=== PATIENT | male | born 1955 | race Caucasian/White ===

== ENCOUNTER → 2024-08-31 14:25 | Outpatient (CLI) | payer MEDICARE, SELFPAY ==
--- NOTE | 2024-08-31 14:27 | DI.RAD.S_ITS ---
PROCEDURE: XR CHEST 2V INDICATIONS: Cough, SOB TECHNIQUE: 2 views of the chest were acquired. COMPARISON: None. FINDINGS: Surgical changes and devices: None. Lungs and pleura: Prominent interstitial markings and small bilateral pleural effusions Mediastinum: Mediastinal contours are normal. Heart size is normal. Bones and chest wall: No suspicious bony abnormalities. Soft tissues appear unremarkable. IMPRESSION: Small bilateral effusions with prominent tissue markings, likely representing pulmonary edema. Dictated by: George Brody M.D. on 08/31/2024 at 15:04 Approved by: George Brody M.D. on 08/31/2024 at 15:09
== END ==
PROVIDERS: Referring Provider Physician Assistant Surgical; Visit Provider Physician Assistant Surgical
DX: J90 Pleural effusion, not elsewhere classified (principal); R05.9 Cough, unspecified
CPT/HCPCS: 71046

== ENCOUNTER → 2024-09-09 16:37 | Outpatient (CLI) | payer MEDICARE, SELFPAY ==
[2024-09-09 17:29] LABS: Add Manual Diff / Slide Review NO; Basophils Absolute Auto 100 /uL (0-100); Basophils Percent Auto 1.1 % (0-2); Eosinophils Absolute Auto 100 /uL (0-450); Eosinophils Percent Auto 1.9 % (2-4); Hematocrit 44.7 % (41-53); Hemoglobin 14.9 g/dL (13.5-17.5); Lymphocytes Absolute Auto 1600 /uL (1100-4500); Lymphocytes Percent Auto 21.1 % (25-40); Mean Corpuscular HGB Conc 33.3 % (30-36); Mean Corpuscular Hemoglobin 32.4 PG (26-34); Mean Corpuscular Volume 97.2 fL (80-100); Monocytes Absolute Auto 800 /uL (0-900); Monocytes Percent Auto 9.9 % (3-14); Neutrophils Absolute Auto 5100 /uL (1500-7000); Platelet Count 248 X10^3/uL (150-400); Red Blood Cell Count 4.59 X10^6/uL (4.5-5.9); Red Cell Distribution Width 13.9 % (11.6-14.8); White Blood Cell Count 7.7 X10^3/uL (4.5-11.0)
[2024-09-09 18:20] LABS: Alanine Aminotransferase 39 IU/L (<50); Albumin Globulin Ratio 1.3 (1.0-2.8); Alkaline Phosphatase 74 U/L (38-126); Aspartate Aminotransferase 42 IU/L (17-59); BUN Creatinine Ratio 15.8 (6-22); Bilirubin Total 0.8 mg/dL (0.2-1.3); Blood Urea Nitrogen 16 mg/dL (9-20); Calcium 8.8 mg/dL (8.4-10.2); Carbon Dioxide 29 mmol/L (22-32); Chloride 103 mmol/L (98-107); Cholesterol 170 mg/dL (140-199); Estimated Glomerular Filt Rate > 60 mL/min (>60); Glucose 102 mg/dL (80-110); HDL Cholesterol 46 mg/dL (40-60); HEMOLYSIS < 15 (0-50); LDL Cholesterol Calculated 114 mg/dL (<100); Potassium 3.9 mmol/L (3.4-5.1); Sodium 137 mmol/L (137-145); Triglycerides 50 mg/dL (35-150)
[2024-09-09 18:52] LABS: TSH w/ Reflex to FT4 1.94 uIU/mL (0.47-4.68)
== END ==
LOC: LAB 16:39
PROVIDERS: PCP Family Medicine; Referring Provider Family Medicine; Visit Provider Family Medicine
DX: I10 Essential (primary) hypertension (principal); J90 Pleural effusion, not elsewhere classified
CPT/HCPCS: 36415; 80053; 80061; 84443; 85025

== ENCOUNTER → 2024-09-15 09:23 | Outpatient (CLI) | payer MEDICARE, SELFPAY ==
--- NOTE | 2024-09-15 09:25 | DI.RAD.S_ITS ---
PROCEDURE: XR CHEST 2V INDICATIONS: unresolved shortness of breath TECHNIQUE: 2 views of the chest were acquired. COMPARISON: [facility], CR, XR CHEST 2V, 08/31/2024, 14:41. FINDINGS: Surgical changes and devices: None. Lungs and pleura: Moderate bilateral pleural effusions are unchanged. Mild airspace disease both inferior lower lobes is likely atelectasis. Mediastinum: Heart is mildly enlarged. Mediastinum unremarkable . Pulmonary vessels are mildly distended Bones and chest wall: No osseous abnormality IMPRESSION: Moderate CHF. Dictated by: Alan Leonard M.D. on 09/16/2024 at 17:16 Approved by: Alan Leonard M.D. on 09/16/2024 at 17:17
== END ==
PROVIDERS: PCP Family Medicine; Referring Provider Family Medicine; Visit Provider Family Medicine
DX: J18.9 Pneumonia, unspecified organism (principal); J90 Pleural effusion, not elsewhere classified; I50.9 Heart failure, unspecified; R06.02 Shortness of breath; I51.7 Cardiomegaly
CPT/HCPCS: 71046

== ENCOUNTER → 2024-10-04 09:04 | Outpatient (CLI) | payer MEDICARE, SELFPAY ==
--- NOTE | 2024-10-04 09:06 | DI.ECHO.S_ITS ---
[facility] : : [id number] : [place] : : [id number] : : Phone: [phone] Echocardiogram Report + + :Name: JESUSITA HONG Study Date: 10/04/2024 Height: 72 in : :Hospital ReadingLocation: Weight: 249 lb : : Gender: Male BSA: 2.3 m2 : :: 1955 Age: 69 yrs BP: 183/98 mmHg: :Reason For Study: PLEURAL EFFUSION, HYPERTENSION : :Ordering Physician: THANH, : :GAVINO Reyes Performed By: Bala Bojorquez : :Referring: GAVINO LAW : + + Interpretation Summary The study quality was technically difficult. The ejection fraction is estimated to be 55-60%. Diastolic parameters suggest probable normal left ventricular diastolic function and normal filling pressures. The right ventricular systolic function is normal. Pulmonary artery pressures cannot be estimated because of the lack of a measurable TR jet velocity but the IVC suggests a CVP of around 3 mmHg. No significant valvular abnormality. There is a moderate left-sided pleural effusion. Procedure: A two-dimensional transthoracic echocardiogram with color flow and Doppler was performed. There is no prior echocardiogram noted for this patient. The study quality was technically difficult. The patient was in normal sinus rhythm during the exam. Left Ventricle: The left ventricle is normal in size. Left ventricular wall thickness is mildly increased. There is no ventricular septal defect visualized. The ejection fraction is estimated to be 55-60%. There are no obvious focal wall motion abnormalities noted but poor endocardial definition reduces the sensitivity for the detection of such. Regional wall motion abnormalities cannot be excluded due to limited visualization. Diastolic parameters suggest probable normal left ventricular diastolic function and normal filling pressures. Right Ventricle: The right ventricle is mildly dilated. The right ventricular systolic function is normal. Atria: The left atrium grossly appears normal in size. Right atrial size is normal. The interatrial septum grossly appears intact with no obvious evidence for an atrial septal defect. Mitral Valve: The mitral valve leaflets are mildly calcified. There is trace mitral regurgitation. Aortic Valve: The aortic valve is trileaflet. The aortic valve is mildly calcified. The aortic valve opens well. There is no aortic valve stenosis. There is mild aortic regurgitation. Tricuspid Valve: The tricuspid valve leaflets are thin and pliable. No tricuspid regurgitation. Pulmonary artery pressures cannot be estimated because of the lack of a measurable TR jet velocity but the IVC suggests a CVP of around 3 mmHg. Pulmonic Valve: The pulmonic valve is not well seen, but is grossly normal. There is no pulmonic valvular regurgitation. Great Vessels: The aortic root is normal size. The ascending aorta is mildly enlarged. The pulmonary artery is normal size. The IVC is of normal diameter and collapses greater than 50% with a sniff. This suggests a low right atrial pressure of 3 mm Hg. Pericardium/ Pleura There is a trivial pericardial effusion noted. There is a moderate left-sided pleural effusion. MMode/2D Measurements & Calculations LVIDd: 5.0 cm LVOT diam: 2.4 cm LVIDs: 3.5 cm Ao root diam: 3.6 cm FS: 29.6 % asc Aorta Diam: 3.8 cm EPSS: 0.98 cm Ao Arch Diam (Prox Trans): 2.4 cm IVSd: 1.5 cm LVPWd: 1.1 cm LV ellington. diameter/BSA (cm/m^2): 2.1 LV sys. diameter/BSA (cm/m^2): 1.5 LA A2 area: 21.7 cm2 RA long axis: 4.6 cm LA A4 area: 25.7 cm2 RA area: 14.2 cm2 LA length (vol): 6.3 cm RA vol: 37.2 ml LA vol: 74.9 ml RA : 15.9 ml/m2 LA vol index: 32.0 ml/m2 IVC diam: 1.6 cm RVD1 (basal): 4.4 cm TAPSE: 2.7 cm Doppler Measurements & Calculations Ao V2 max: 151.2 cm/sec LVOT Max Stalin: 91.9 cm/sec Ao V2 mean: 102.0 cm/sec LV V1 max P.4 mmHg Ao max P.1 mmHg LV V1 VTI: 17.1 cm Ao mean P.8 mmHg LEANNE(I,D): 3.1 cm2 Ao V2 VTI: 24.8 cm LEANNE(V,D): 2.7 cm2 sev ratio: 0.69 LEANNE indexed to BSA (cm^2/m^2): 1.3 MV E max stalin: 75.3 cm/sec PA V2 max: 75.5 cm/sec MV A max stalin: 50.7 cm/sec PA V2 mean: 57.4 cm/sec MV E/A: 1.5 PA mean P.4 mmHg Med Peak E' Stalin: 6.3 cm/sec PA pr(Accel): 53.3 mmHg E/E' med: 12.0 Lat Peak E' Stalin: 6.3 cm/sec E/E' lat: 11.9 E/e' average: 11.9 MV dec time: 0.11 sec [facility] 76.2 ml Reading Physician:05:19 PM
== END ==
PROVIDERS: PCP Family Medicine; Referring Provider Family Medicine; Visit Provider Family Medicine
DX: I35.1 Nonrheumatic aortic (valve) insufficiency (principal); J90 Pleural effusion, not elsewhere classified; I10 Essential (primary) hypertension; I77.89 Other specified disorders of arteries and arterioles
CPT/HCPCS: 93306

== ENCOUNTER → 2024-10-18 11:25 | Outpatient (CLI) | payer MEDICARE, SELFPAY ==
[2024-10-18 12:30] LABS: BUN Creatinine Ratio 15.3 (6-22); Blood Urea Nitrogen 15 mg/dL (9-20); Calcium 8.8 mg/dL (8.4-10.2); Carbon Dioxide 29 mmol/L (22-32); Chloride 98 mmol/L (98-107); Estimated Glomerular Filt Rate > 60 mL/min (>60); Glucose 116 mg/dL (80-110); HEMOLYSIS < 15 (0-50); Sodium 138 mmol/L (137-145)
== END ==
PROVIDERS: PCP Family Medicine; Referring Provider Family Medicine; Visit Provider Family Medicine
DX: I50.9 Heart failure, unspecified (principal)
CPT/HCPCS: 36415; 80048

== ENCOUNTER → 2024-10-25 07:37 | Outpatient (CLI) | payer MEDICARE, SELFPAY ==
--- NOTE | 2024-10-25 07:38 | DI.US.S_ITS ---
PROCEDURE: US ABDOMEN COMPLETE INDICATIONS: Abdominal ascites TECHNIQUE: Real-time scanning was performed of the abdominal and retroperitoneal organs, with image documentation. COMPARISON: None. FINDINGS: Incidental note is made of bilateral pleural effusions left greater than right. Approximately 2.1 x 1.4 x 1.3 centimeter hyperechoic round nodular density in the left lobe of the liver commonly may represent hemangioma however other hepatic lesions not excluded and follow-up suggested. Gallbladder is nondistended. No ultrasound evidence of gallbladder wall thickening or pericholecystic fluid. Common bile duct measures 4 millimeters within normal limits. Pancreatic head and body within normal limits. Pancreatic tail not well visualized due to overlying bowel gas per notes. Spleen measures 9.1 centimeters in length within normal limits. Kidneys: Kidneys are normal in size and echotexture. Right kidney measures 11.7 cm long; left kidney measures 13.3 cm long. No hydronephrosis or nephrolithiasis. No solid masses. Aorta: Visualized aorta is normal in caliber at less than 3 cm. Iliacs: Proximal common iliac arteries are normal in caliber at less than 2.5 cm. IVC: Intrahepatic inferior vena cava is patent. Miscellaneous: No free abdominal fluid. IMPRESSION: Bilateral pleural effusions. 2.1 centimeter hyperechoic nodule left lobe of the liver as discussed above. Follow-up suggested. No ultrasound evidence of ascites. If symptoms persist or worsen, or there is high clinical suspicion of abdominal abnormality, CT or MRI could be performed. Dictated by: Phong Crawford M.D. on 10/25/2024 at 9:09 Approved by: Phong Crawford M.D. on 10/29/2024 at 21:57
--- NOTE | 2024-10-25 07:38 | DI.CT.S_ITS ---
PROCEDURE: CT CHEST W CON INDICATIONS: Pleural effusion TECHNIQUE: After the administration of intravenous contrast, 5 mm thick sections acquired from the pulmonary apices to the posterior costophrenic angles. 1 mm axial lung, 5 mm thick coronal and sagittal reformats and 7 mm axial MIP were acquired. For radiation dose reduction, the following was used: automated exposure control, adjustment of mA and/or kV according to patient size. COMPARISON: [facility], CR, XR CHEST 2V, 09/15/2024, 9:35. FINDINGS: Image quality: Diagnostic. Lower Neck: No enlarged lymph nodes. Thyroid: No thyroid nodules which require sonographic follow up, per consensus guidelines. Axillae: No enlarged lymph nodes. Chest Wall: Mild left greater than right gynecomastia. Bones: No acute vertebral body compression fractures. Multilevel spondylitic changes throughout the imaged spine. No suspicious osseous lesions. Lungs and Pleura: Small-moderate left and small right bilateral pleural effusions with associated compressive atelectasis. Streaky densities of the left lower lobe likely representing atelectasis. Mild bilateral airway thickening. Mild smooth septal thickening of the bilateral upper lobes. Minimal septal thickening of the lower lobes. No suspicious pulmonary nodules or mass lesions. No pneumothorax. Heart: Heart size is normal. No pericardial effusion. Coronary atherosclerotic vascular calcifications are noted. Thoracic Vessels: The pulmonary arteries demonstrate normal size. Borderline ectasia of the ascending thoracic aorta measuring approximately 4.0 cm in diameter. Mediastinum and Kasey: Multiple scattered prominent mediastinal lymph nodes. Largest measures approximately 1.3 cm in short axis dimension in the precarinal region. Esophagus: No wall thickening. No hiatal hernia. Upper Abdomen: Visualized upper abdomen solid organs and bowel loops appear normal. IMPRESSION: Small right and small-moderate left bilateral pleural effusions with associated compressive atelectasis, bilateral airway thickening, and mild smooth septal thickening. Findings are nonspecific but may be related to pulmonary edema/CHF. No focal consolidation identified. Borderline ectasia of the ascending thoracic aorta measuring up to 4.0 cm in diameter. Atherosclerotic calcification of the coronary arteries. Multiple prominent mediastinal lymph nodes likely reactive in etiology. Other chronic/non-acute findings as above. Dictated by: Howard Jaquez M.D. on 10/25/2024 at 11:28 Approved by: Howard Jaquez M.D. on 10/25/2024 at 11:34
== END ==
PROVIDERS: PCP Family Medicine; Referring Provider Family Medicine; Visit Provider Family Medicine
DX: J90 Pleural effusion, not elsewhere classified (principal); J98.11 Atelectasis; R18.8 Other ascites; I25.10 Atherosclerotic heart disease of native coronary artery without angina pectoris
CPT/HCPCS: 71260; 76700; Q9967

== ENCOUNTER → 2024-11-15 13:35 | Outpatient (CLI) | payer MEDICARE, SELFPAY ==
[2024-11-15 14:45] LABS: BUN Creatinine Ratio 14.2 (6-22); Blood Urea Nitrogen 15 mg/dL (9-20); Calcium 9.3 mg/dL (8.4-10.2); Carbon Dioxide 30 mmol/L (22-32); Chloride 100 mmol/L (98-107); Estimated Glomerular Filt Rate > 60 mL/min (>60); Glucose 94 mg/dL (80-110); HEMOLYSIS < 15 (0-50); Sodium 140 mmol/L (137-145)
== END ==
PROVIDERS: PCP Family Medicine; Referring Provider Family Medicine; Visit Provider Family Medicine
DX: I10 Essential (primary) hypertension (principal)
CPT/HCPCS: 36415; 80048

== ENCOUNTER → 2024-11-22 08:47 | Outpatient (CLI) | payer MEDICARE, SELFPAY ==
--- NOTE | 2024-11-22 08:48 | DI.CT.S_ITS ---
PROCEDURE: CT CHEST W CON INDICATIONS: F/U CT chest for enlarged lymph nodes TECHNIQUE: After the administration of intravenous contrast, 5 mm thick sections acquired from the pulmonary apices to the posterior costophrenic angles. 1 mm axial lung, 5 mm thick coronal and sagittal reformats and 7 mm axial MIP were acquired. For radiation dose reduction, the following was used: automated exposure control, adjustment of mA and/or kV according to patient size. COMPARISON: [facility], CT, CT CHEST W CON, 10/25/2024, 8:42. FINDINGS: Image quality: Diagnostic. Some images are limited by beam hardening artifacts. Moderate left and mild right pleural effusions relatively unchanged. Mild bilateral perihilar and lower lobe peribronchial thickening, some of which may be related expiratory result; however, bronchitis, viral infection, bronchopneumonia or other process should be considered similar to the prior exam. Compressive atelectatic changes are noted in the left lower lobe greater than right lower lobe basal segments. Mild cardiomegaly with four-chamber enlargement predominantly left atrial, left ventricular enlargement relatively unchanged. Mildly prominent pulmonary vessels pulmonary vascular congestion unchanged. Mild calcifications of the aortic valve coronary arteries unchanged. Numerous mildly enlarged mediastinal lymph nodes, prevascular, aortic or pulmonary, anterior tracheal, bilateral paratracheal, subcarinal and hilar loads the largest right low anterior paratracheal measuring up to 1.3 cm short axis unchanged. 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 Bilateral anterior chest wall subareolar soft tissue attenuation measuring up to 2 cm on the left and 1 cm on the right mild gynecomastia unchanged. No pneumothorax, no lobar consolidation. IMPRESSION: No significant change compared to the prior exam. Bilateral pleural effusions unchanged. Mildly enlarged mediastinal lymph nodes commonly reactive/inflammatory although given the size and number cannot exclude pathologically enlarged nodes and follow-up suggested. Mild peribronchial thickening unchanged. Mild cardiomegaly and mild pulmonary vascular congestion unchanged. Follow-up suggested Dictated by: Phong Crawford M.D. on 11/22/2024 at 12:40 Approved by: Phong Crawford M.D. on 11/22/2024 at 12:49
== END ==
LOC: CT 08:48
PROVIDERS: PCP Family Medicine; Referring Provider Family Medicine; Visit Provider Family Medicine
DX: J90 Pleural effusion, not elsewhere classified (principal); I71.40 Abdominal aortic aneurysm, without rupture, unspecified; I51.7 Cardiomegaly; R59.0 Localized enlarged lymph nodes; R09.89 Other specified symptoms and signs involving the circulatory and respiratory systems
CPT/HCPCS: 71260; Q9967

== ENCOUNTER → 2025-01-24 07:28 | Outpatient (CLI) | payer MEDICARE, SELFPAY ==
--- NOTE | 2025-01-24 07:29 | DI.US.S_ITS ---
PROCEDURE: US ABDOMEN LIMITED INDICATIONS: F/u liver lesion identified October 2024 TECHNIQUE: Real-time scanning was performed of the liver, with image documentation. COMPARISON: [facility], CT, CT CHEST W CON, 11/22/2024, 8:56. [facility], US, US ABDOMEN COMPLETE, 10/25/2024, 7:56. FINDINGS: Liver: Measures 13.2 cm in length. Diffuse increased in echogenicity. Left liver echogenic oval lesion measuring 2.3 x 1.3 x 1 cm, (previously 2.1 x 1.4 x 1.3 cm). Not significantly changed. This may be subtly visualized on CT chest with contrast 10/25/2024. IMPRESSION: Left liver lesion measuring 2.3 cm. Not significantly changed. This could represent a hemangioma. This could be more definitively characterized with multiphase liver CT or liver MRI. Increased hepatic echogenicity most consistent with hepatic steatosis. Other forms of hepatocellular disease could have similar appearance. Dictated by: Elan Carney M.D. on 01/24/2025 at 8:53 Approved by: Elan Carney M.D. on 01/24/2025 at 8:58
== END ==
LOC: US 07:28
PROVIDERS: PCP Family Medicine; Referring Provider Family Medicine; Visit Provider Family Medicine
DX: R18.8 Other ascites (principal); F10.10 Alcohol abuse, uncomplicated; K76.9 Liver disease, unspecified
CPT/HCPCS: 76705

== ENCOUNTER → 2025-01-27 13:43 | Outpatient (CLI) | payer MEDICARE, SELFPAY ==
--- NOTE | 2025-02-02 17:31 | DI.NM.S_ITS ---
DATE OF SERVICE: 01/27/2025 NUCLEAR CARDIOLOGY MYOCARDIAL PERFUSION STUDY PROCEDURE PERFORMED: Pharmacologic vasodilator stress and rest myocardial perfusion imaging with gating to assess ejection fraction and regional wall motion. ORDERING PROVIDER: Bonnie Ceja M.D. INDICATIONS: The patient is a 69-year-old male with rapidly progressive exertional dyspnea and pedal edema. PHARMACOLOGIC STRESS: Per protocol, 0.4 mg of regadenoson was infused, augmented by slow level walking on the treadmill. With this, he had a normal heart rate and blood pressure response and denied any chest discomfort. His resting ECG shows sinus rhythm with frequent PACs, at times in a trigeminal pattern, and mild baseline ST-segment abnormalities. With stress, there are no significant ST-segment shifts but the PACs resolve and there are no other arrhythmias. Per protocol, 25.6 millicuries of technetium-99m Myoview was injected and he was imaged 15 minutes later using a gated SPECT acquisition protocol. Six days earlier while at rest, he had been injected with 26.0 millicuries of technetium-99m Myoview and was imaged 15 minutes later, again using a gated SPECT acquisition protocol. FINDINGS: 1. Raw data. There is fair myocardial tracer uptake. The lung/heart ratio is normal at 0.35 with a normal TID ratio of 1.02. 2. Quantitated gated SPECT: Post-stress ejection fraction is estimated at 57% without any focal wall motion abnormality and specifically the inferior wall has normal contractility. The resting ejection fraction is 61% with a moderately increased resting end-diastolic volume of 203 mL. There is mild increased tracer uptake of the right ventricular free wall, which can be a sign of a right ventricular overload condition, but clinical correlation is recommended. 3. Myocardial perfusion imaging: Post-stress supine images show a [id number] perfusion defect in the proximal to mid inferior wall in a pattern consistent with diaphragmatic attenuation, although the defect persists on the prone images, yet the prone images are of fairly poor quality. The resting images show a similar perfusion pattern with an inferior perfusion defect, although with some improvement throughout the inferior wall compared to the stress images. IMPRESSION: 1. Probable abnormal myocardial perfusion study but with reduced specificity because of marginal image quality and likely low risk. 2. Predominantly fixed, but slightly reversible perfusion defect in the inferior wall. While this has a typical appearance for diaphragmatic attenuation artifact, this defect persists on the prone images, raising concern this reflects a true perfusion defect, yet the prone images are of fairly poor quality, reducing their reliability. While this could be reflect a previous nontransmural inferior infarction with slight kathy-infarct ischemia, the absence of any wall motion abnormality in this distribution reduces the specificity for this finding, and if present, there is only a small volume of myocardial ischemia. 3. Normal left ventricular function without focal abnormality but moderately increased left ventricular volumes. Mildly increased tracer uptake in the right ventricular free wall suggests the possibility of a right ventricular overload condition but clinical correlation is needed. 4. No angina or ECG evidence of ischemia with pharmacologic vasodilator stress but baseline ST-segment abnormalities. There were frequent PACs at rest, at times in a trigeminal pattern, that improved with stress and there was no complex ectopy. Leobardo Chinhcilla - NETO/valente/NICOLA doc#: [id number]/job#: [id number] dd: 02/02/2025 16:40:00 dt: 02/02/2025 17:09:00 DICTATING MD/COPIES TO: Maxime Osuna MD; Bonnie Ceja M.D. COPIES MNE: ETRI;
== END ==
LOC: NUCM 13:43
PROVIDERS: PCP Family Medicine; Referring Provider Internal Medicine Cardiovascular Disease; Visit Provider Internal Medicine Cardiovascular Disease
DX: I25.10 Atherosclerotic heart disease of native coronary artery without angina pectoris (principal); R06.02 Shortness of breath
CPT/HCPCS: 78452; 93017; A9502; J2785

== ENCOUNTER → 2025-05-23 09:02 | Outpatient (CLI) | payer MEDICARE, SELFPAY ==
--- NOTE | 2025-05-23 09:04 | DI.CT.S_ITS ---
PROCEDURE: CT ABDOMEN LIVER PROTOCOL INDICATIONS: multiphase liver CT TECHNIQUE: 4 phase scanning was performed. Non-contrast 5 mm axial sections acquired from the diaphragm to the iliac crests. Following the administration of intravenous contrast, 5 mm thick arterial-phase, portal venous-phase, and 5-minute delayed phase images were acquired through the liver. 5 mm thick coronal and sagittal reformats were performed. For radiation dose reduction, the following was used: automated exposure control, adjustment of mA and/or kV according to patient size. COMPARISON: [facility], US, US ABDOMEN LIMITED, 01/24/2025, 7:37. [facility], CT, CT CHEST W CON, 11/22/2024, 8:56. FINDINGS: Image quality: Excellent. Lower chest: Small bilateral pleural effusions. ABDOMEN: Liver: Small hepatic lesions. Subtle peripheral nodular discontinuous enhancement. -Liver measuring 1.5 cm, (11/24). Corresponds to the echogenic focus seen on prior ultrasound. -Right liver inferiorly measuring 1.5 cm, (). Liver surface appears smooth. Gallbladder: No radiopaque gallstones or wall thickening. Biliary ducts: No biliary dilation. Pancreas: No ductal dilation. Spleen: Size is within normal limits. Adrenal Glands: No adrenal nodules. Kidneys and Ureters: No hydronephrosis. No kidney stones. No solid mass. No complex renal cystic lesion which requires follow up. Stomach and Bowel: Normal colonic caliber, without significant wall thickening. Visualized portions of the appendix are normal. Peritoneum: No abnormal intraperitoneal fluid. No free air. Ventral Wall: No hernia. Abdominal Nodes: No retroperitoneal or mesenteric adenopathy by size criteria. Vessels: Aorta and inferior vena cava are normal in size. Portal vein is patent. PELVIS: Pelvic Organs: Unremarkable. Bladder: Unremarkable. Pelvic Nodes: No enlarged lymph nodes. Miscellaneous: No inguinal hernias are seen. Bones: No aggressive osseous abnormality. IMPRESSION: 1. Small benign hemangiomas in the liver x2. 2. Small bilateral pleural effusions. Dictated by: Elan Carney M.D. on 05/23/2025 at 13:06 Approved by: Elan Carney M.D. on 05/23/2025 at 13:14
[2025-05-23 09:27] LABS: Estimated Glomerular Filt Rate > 60 mL/min (>60)
== END ==
LOC: CT 09:04
PROVIDERS: PCP Family Medicine; Referring Provider Family Medicine; Visit Provider Family Medicine
DX: K76.89 Other specified diseases of liver (principal); D18.03 Hemangioma of intra-abdominal structures; J90 Pleural effusion, not elsewhere classified
CPT/HCPCS: 36415; 74170; 82565; Q9967

== ENCOUNTER → 2025-06-13 12:13 | Outpatient (CLI) | payer MEDICARE, SELFPAY ==
[2025-06-13 12:50] LABS: Add Manual Diff / Slide Review NO; Hematocrit 44.7 % (41-53); Hemoglobin 15.3 g/dL (13.5-17.5); Lymphocytes Absolute Auto 1500 /uL (1100-4500); Mean Corpuscular HGB Conc 34.3 % (30-36); Mean Corpuscular Hemoglobin 32.1 PG (26-34); Mean Corpuscular Volume 93.6 fL (80-100); Platelet Count 200 X10^3/uL (150-400)
[2025-06-13 12:55] LABS: INR 1.4 (0.9-1.3); Prothrombin Time 15.3 SECONDS (9.4-12.5)
[2025-06-13 13:09] LABS: Alanine Aminotransferase 31 IU/L (<50); Albumin 4.2 g/dL (3.5-5.0); Albumin Globulin Ratio 1.4 (1.0-2.8); Alkaline Phosphatase 81 U/L (38-126); Blood Urea Nitrogen 16 mg/dL (9-20); Calcium 8.9 mg/dL (8.4-10.2); Carbon Dioxide 28 mmol/L (22-32); Chloride 101 mmol/L (98-107); Estimated Glomerular Filt Rate > 60 mL/min (>60); Globulin 3.1 g/dL (1.7-4.1); Glucose 102 mg/dL (70-99); HEMOLYSIS < 15 (0-50); Potassium 4.0 mmol/L (3.4-5.1); Sodium 138 mmol/L (137-145); Total Protein 7.3 g/dL (6.3-8.2)
== END ==
PROVIDERS: PCP Family Medicine; Referring Provider Family Medicine; Visit Provider Family Medicine
DX: R04.2 Hemoptysis (principal)
CPT/HCPCS: 36415; 80053; 85025; 85610

== ENCOUNTER → 2025-06-14 13:09 | Outpatient (CLI) | payer MEDICARE, SELFPAY ==
--- NOTE | 2025-06-14 13:30 | DI.CT.S_ITS ---
PROCEDURE: CT CHEST W CON INDICATIONS: Hemoptysis TECHNIQUE: After the administration of intravenous contrast, 5 mm thick sections acquired from the pulmonary apices to the posterior costophrenic angles. 1 mm axial lung, 5 mm thick coronal and sagittal reformats and 7 mm axial MIP were acquired. For radiation dose reduction, the following was used: automated exposure control, adjustment of mA and/or kV according to patient size. COMPARISON: [facility], CR, XR CHEST 2V, 09/15/2024, 9:35. [facility], CT, CT ABDOMEN LIVER PROTOCOL, 05/23/2025, 9:58. [facility], CT, CT CHEST W CON, 11/22/2024, 8:56. FINDINGS: Image quality: Diagnostic. Lower Neck: No enlarged lymph nodes. Thyroid: No thyroid nodules which require sonographic follow up, per consensus guidelines. Axillae: No enlarged lymph nodes. Chest Wall: Unremarkable. Bones: Unremarkable. Lungs and Pleura: No pneumothorax. Small bilateral pleural effusions. Patchy ground-glass airspace opacity most pronounced in the upper lobes. Not seen on 11/22/2024. Bibasilar atelectasis. Central airways are clear. Heart: Heart size is prominent. No pericardial effusion. Thoracic Vessels: The aorta and pulmonary arteries demonstrate normal size. No central pulmonary embolism. No dissection. Mediastinum and Kasey: Mediastinal and hilar adenopathy. For example: -Right paratracheal 1.4 cm, (2/41), previously 1.2 cm. -AP window node measuring 1 cm, (2/37), previously 0.9 cm. -Multiple additional shotty lymph nodes. Esophagus: No wall thickening. No hiatal hernia. Upper Abdomen: Subtle hypodensities in the liver. Previously characterized as hemangiomas. No adrenal nodule. IMPRESSION: 1. Patchy ground-glass opacity most pronounced in the upper lobes. This could represent pulmonary hemorrhage or infectious/inflammatory etiology. 2. Small bilateral pleural effusions. 3. Mediastinal and hilar adenopathy. A few nodes are increased in size. Dictated by: Elan Carney M.D. on 06/14/2025 at 14:47 Approved by: Elan Carney M.D. on 06/14/2025 at 14:58
== END ==
LOC: CT 13:10
PROVIDERS: PCP Family Medicine; Referring Provider Family Medicine; Visit Provider Family Medicine
DX: J90 Pleural effusion, not elsewhere classified (principal); R04.2 Hemoptysis; R59.0 Localized enlarged lymph nodes
CPT/HCPCS: 71260; Q9967

== ENCOUNTER → 2025-06-20 15:49 | Outpatient (CLI) | payer MEDICARE, SELFPAY ==
--- NOTE | 2025-06-20 15:51 | DI.RAD.S_ITS ---
PROCEDURE: XR CHEST 2V
== END ==
PROVIDERS: PCP Family Medicine; Referring Provider Family Medicine; Visit Provider Family Medicine
DX: J90 Pleural effusion, not elsewhere classified (principal); J81.1 Chronic pulmonary edema; R04.2 Hemoptysis; R05.9 Cough, unspecified; I51.7 Cardiomegaly
CPT/HCPCS: 71046

== ENCOUNTER → 2025-06-27 11:11 | Outpatient (CLI) | payer MEDICARE, SELFPAY ==
[2025-06-27 13:41] LABS: Blood Urea Nitrogen 17 mg/dL (9-20); Calcium 8.5 mg/dL (8.4-10.2); Carbon Dioxide 29 mmol/L (22-32); Chloride 103 mmol/L (98-107); Estimated Glomerular Filt Rate > 60 mL/min (>60); Glucose 106 mg/dL (70-99); HEMOLYSIS < 15 (0-50); Potassium 4.3 mmol/L (3.4-5.1); Sodium 139 mmol/L (137-145)
== END ==
PROVIDERS: PCP Family Medicine; Referring Provider Family Medicine; Visit Provider Family Medicine
DX: E66.811 Obesity, class 1 (principal)
CPT/HCPCS: 36415; 80048